=== PATIENT | male | born 1995 | race Caucasian/White ===

== ENCOUNTER 2025-06-28 13:37 | Emergency (ER) | payer SELFPAY | END 2025-06-28 16:42 | disposition home or self-care (01) | LOC: CSHERS 13:37 | DX: S61.213A Laceration without foreign body of left middle finger without damage to nail, initial encounter (principal); F17.290 Nicotine dependence, other tobacco product, uncomplicated; W26.0XXA Contact with knife, initial encounter | CPT/HCPCS: 12002; 99283 ==